=== PATIENT | male | born 1945 | race Caucasian/White ===

== ENCOUNTER → 2018-06-22 | Outpatient (CLI) | payer MEDICARE ==
[~2018-06-22] MED LIST: ALBU18HF PO; AMLO5TAB4 PO; EVOL140P SQ; FLUT200B PO; LOSA100T7 PO
[2018-06-22 09:34] LABS: BASOPHILS # (AUTO) 0.02 x10^3/uL (0-0.1); BASOPHILS % (AUTO) 0 % (0-1); EOSINOPHILS # (AUTO) 0.09 x10^3/uL (0-0.4); EOSINOPHILS % (AUTO) 2 % (1-7); LYMPHOCYTES % (AUTO) 25 % (22-44); MD NO; MEAN CORPUSCULAR HEMOGLOBIN 30.9 pg (27.5-34.5); MEAN CORPUSCULAR HGB CONC 33.9 g/dL (33.2-36.2); MEAN CORPUSCULAR VOLUME 91.2 fL (81-97); MEAN PLATELET VOLUME 8.2 fL (7.4-10.4); MONOCYTES # (AUTO) 0.46 x10^3/uL (0.2-0.8); MONOCYTES % (AUTO) 10 % (2-9); NEUTROPHILS # (AUTO) 3.06 x10^3/uL (1.8-6.8); NEUTROPHILS % (AUTO) 63 % (42-75); PLATELET COUNT 233 x10^3/uL (130-400); RED BLOOD COUNT 5.38 x10^6/uL (4.38-5.82); RED CELL DISTRIBUTION WIDTH 12.4 % (9.4-14.8)
[2018-06-22 09:37] LABS: MICROSCOPIC NOT IND
[2018-06-22 09:41] LABS: INTERNATIONAL NORMALIZED RATIO 0.94 (0.93-1.1)
[2018-06-22 09:42] LABS: CULTURE INDICATED? NO
[2018-06-22 10:11] LABS: ALANINE AMINOTRANSFERASE 27 U/L (12-78); ALBUMIN 3.6 g/dL (3.4-5.0); ANION GAP 8 mmol/L (5-15); CALCIUM 8.6 mg/dL (8.5-10.1); CHLORIDE 109 mmol/L (98-107); CREATININE 1.06 mg/dL (0.7-1.3)
[2018-06-22 10:16] LABS: ALKALINE PHOSPHATASE 87 U/L (45-117); BILIRUBIN,TOTAL 0.6 mg/dL (0.2-1.0); TOTAL PROTEIN 6.7 g/dL (6.4-8.2)
== END | disposition home or self-care (01) ==
LOC: STAR 08:21
PROVIDERS: ATTEND Neurological Surgery
DX: Z01.818 Encounter for other preprocedural examination (principal); I25.2 Old myocardial infarction; M48.061 Spinal stenosis, lumbar region without neurogenic claudication; M51.36 Other intervertebral disc degeneration, lumbar region
CPT/HCPCS: 36415; 71046; 72114; 80053; 81003; 85025; 85610; 85730; 93005

== ENCOUNTER 2018-07-01 13:57 | Inpatient (IN) | payer MEDICARE ==
[~2018-07-01] VITALS: Ht 172.7 cm; Wt 88.8 kg
[~2018-07-01 13:57] MED LIST changes: +BACITRACIN 50,000 UNIT ONE; +BUPIVACAINE 0.25% ONE; +BUPIVACAINE/PF-EPI 0.5% 1:200K ONE; +THROMBIN 5,000 UNIT VIAL TP ONE
[2018-07-01] MEDS ORDERED: ACETAMINOPHEN 500 MG TABLET PO ONE (14:00)
[2018-07-01] MEDS ORDERED: GABAPENTIN 300 MG CAPSULE PO ONE (14:00)
[2018-07-01] MEDS ORDERED: FAMOTIDINE 20 MG TABLET PO ONE (14:00)
[2018-07-01] MEDS ORDERED: OxyconTIN ER 10 MG TAB.ER PO ONE (14:00)
[2018-07-01 14:21] VITALS: BP 153/77
[2018-07-01] MEDS ORDERED: FENTANYL PF 250 MCG/5ML ONE (14:39)
[2018-07-01] MEDS ORDERED: FENTANYL PF 100 MCG/2ML IV PRN (15:00)
[2018-07-01] MEDS ORDERED: PROMETHAZINE 25 MG/ML, 1ML IV PRN (15:00)
[2018-07-01] MEDS ORDERED: MEPERIDINE/PF 25MG/0.5ML IVPush PRN (15:00)
[2018-07-01] MEDS ORDERED: OXYcodone 5 MG/5 ML ORAL.SOL UDC PO PRN (15:00)
[2018-07-01] MEDS ORDERED: hydrALAzine 20 MG/ML, 1ML IV PRN (15:00)
[2018-07-01] MEDS ORDERED: ONDANSETRON 2MG/ML, 2ML IV PRN ×2 (15:00→22:00)
[2018-07-01] MEDS ORDERED: LABETALOL 5MG/ML, 20ML IV PRN ×2 (15:00→22:00)
[2018-07-01] MEDS ORDERED: HYDROmorphone 1 MG/ML, 1ML IV PRN (15:00)
[2018-07-01] MEDS ORDERED: DIAZEPAM 5 MG/ML, 2ML IVPush PRN (15:00)
[2018-07-01] MEDS ORDERED: CEFAZOLIN 1,000 MG ONE ×2 (15:48)
[2018-07-01] MEDS ORDERED: PROPOFOL 10 MG/ML, 20ML ONE (15:48)
[2018-07-01] MEDS ORDERED: ROCURONIUM 10MG/ML,5ML ONE (15:48)
[2018-07-01] MEDS ORDERED: DEXAMETHASONE 4 MG/ML, 1ML ONE (16:08)
[2018-07-01] MEDS ORDERED: BUPIVACAINE/PF 0.25% EPIDPUSH ONE (16:41)
[2018-07-01] MEDS ORDERED: BUPIVACAINE LIPOSOME/PF 20ML INFIL ONE (16:51)
[2018-07-01] MEDS ORDERED: FENTANYL PF 100 MCG/2ML ONE (17:17)
[2018-07-01 20:00] VITALS: BP 136/74
[2018-07-01] MEDS ORDERED: PHARMACY MAY ADJ FOR RENAL FX MC PRN (20:00)
[2018-07-01] MEDS: SODIUM CHLORIDE FLUSH 10ML SYR IVF SCH (21:00)
[2018-07-01] MEDS ORDERED: DIPHENHYDRAMINE 50 MG/ML, 1ML IM PRN (22:00)
[2018-07-01] MEDS ORDERED: METHOCARBAMOL 750 MG TABLET PO PRN (22:00)
[2018-07-01] MEDS ORDERED: morphine SULFATE 10 MG/ML, 1ML IV PRN (22:00)
[2018-07-01] MEDS ORDERED: DIPHENHYDRAMINE 50 MG/ML, 1ML IVPush PRN (22:00)
[2018-07-01] MEDS ORDERED: MAGNESIUM HYDROXIDE 8%, 30ML UDC PO PRN (22:00)
[2018-07-01] MEDS ORDERED: OXYcodone/APAP 5/325MG TABLET PO PRN (22:00)
[2018-07-01] MEDS ORDERED: HYDROcodone/APAP 5/325 TABLET PO PRN (22:00)
[2018-07-01] MEDS ORDERED: PROMETHAZINE 25 MG/ML, 1ML IM PRN (22:00)
[2018-07-01] MEDS ORDERED: DIPHENHYDRAMINE 50 MG CAPSULE PO PRN (22:00)
[2018-07-01] MEDS ORDERED: BISACODYL 10 MG SUPP PR PRN (22:00)
[2018-07-01] MEDS: D5%-0.9% NACL+KCL 20MEQ 1,000 ML IV SCH (22:49)
[2018-07-01] MEDS: CLINDAMYCIN PMX 600MG/50ML 50 ML IV SCH (22:49)
[2018-07-02 00:08] VITALS: BP 125/71
[2018-07-02 05:18] LABS: BASOPHILS % (AUTO) 0 % (0-1); EOSINOPHILS % (AUTO) 0 % (1-7); LYMPHOCYTES # (AUTO) 0.64 x10^3/uL (1-3.4); LYMPHOCYTES % (AUTO) 9 % (22-44); MD NO; MEAN CORPUSCULAR HEMOGLOBIN 31.2 pg (27.5-34.5); MEAN CORPUSCULAR HGB CONC 33.7 g/dL (33.2-36.2); MEAN CORPUSCULAR VOLUME 92.6 fL (81-97); MEAN PLATELET VOLUME 7.9 fL (7.4-10.4); MONOCYTES # (AUTO) 0.37 x10^3/uL (0.2-0.8); MONOCYTES % (AUTO) 5 % (2-9); NEUTROPHILS # (AUTO) 6.43 x10^3/uL (1.8-6.8); NEUTROPHILS % (AUTO) 86 % (42-75); PLATELET COUNT 241 x10^3/uL (130-400); RED BLOOD COUNT 4.68 x10^6/uL (4.38-5.82); RED CELL DISTRIBUTION WIDTH 13.1 % (9.4-14.8)
[2018-07-02 05:31] LABS: CHLORIDE 109 mmol/L (98-107)
[2018-07-02 05:39] LABS: ANION GAP 9 mmol/L (5-15); CALCIUM 8.2 mg/dL (8.5-10.1); CREATININE 1.32 mg/dL (0.7-1.3)
[2018-07-02] MEDS: CLINDAMYCIN PMX 600MG/50ML 50 ML IV SCH (06:09)
[2018-07-02 07:08] VITALS: BP 117/65
[2018-07-02] MEDS: D5%-0.9% NACL+KCL 20MEQ 1,000 ML IV SCH (08:00)
[2018-07-02] MEDS: SODIUM CHLORIDE FLUSH 10ML SYR IVF SCH (08:58)
[2018-07-02] MEDS ORDERED: DOXYCYCLINE 100MG TABLET PO SCH (09:00)
[2018-07-02] MEDS ORDERED: SENNA/DOCUSATE TABLET PO SCH (09:00)
[2018-07-02] MEDS ORDERED: HYDR-3240 PO (09:41)
[2018-07-02] MEDS ORDERED: METH750T87 PO (09:41)
[2018-07-02] MEDS ORDERED: DOXY100T PO (09:41)
== END 2018-07-02 16:59 | disposition home or self-care (01) | DRG 459 ==
LOC: OR 13:57 → 4NOR 19:25 → OR 22:16 → 4NOR 22:17
PROVIDERS: ADMIT Neurological Surgery; ATTEND Neurological Surgery
PROC: 0SG0071 Fusion of Lumbar Vertebral Joint with Autologous Tissue Substitute, Posterior Approach, Posterior Column, Open Approach (ICD-10-PCS; 2018-07-01)
PROC: 00HU03Z Insertion of Infusion Device into Spinal Canal, Open Approach (ICD-10-PCS; 2018-07-01)
PROC: 3E0R3BZ Introduction of Anesthetic Agent into Spinal Canal, Percutaneous Approach (ICD-10-PCS; 2018-07-01)
PROC: 01NB3ZZ Release Lumbar Nerve, Percutaneous Approach (ICD-10-PCS; principal; 2018-07-01 07:00)
DX: M48.061 Spinal stenosis, lumbar region without neurogenic claudication (principal); J96.01 Acute respiratory failure with hypoxia; G95.89 Other specified diseases of spinal cord; M54.16 Radiculopathy, lumbar region; Z98.1 Arthrodesis status; Z88.0 Allergy status to penicillin; E88.2 Lipomatosis, not elsewhere classified
CPT/HCPCS: 36415; 72100; 80048; 85025; C9290; G0378; J0690; J1100; J2704; J3010; J3490; J3480